=== PATIENT | male | born 1975 | race Caucasian/White ===

== ENCOUNTER 2022-02-02 07:56 | Inpatient (IN) ==
[2022-02-02] MEDS ORDERED: methylPREDNISolone SOD SUCC 125 MG/2 ML VIAL IV ONE (08:02)
[2022-02-02] MEDS ORDERED: LORazepam 2 MG/ML VIAL IV ONE (08:09)
[2022-02-02] MEDS ORDERED: IPRATROPIUM/ALBUTEROL 3 ML AMPUL.NEB NEB ONE ×3 (08:09→08:34)
[2022-02-02] MEDS ORDERED: LORazepam 2 MG/ML VIAL ONE (08:17)
[2022-02-02] MEDS ORDERED: LEVOFLOXACIN 750 MG/150 ML BAG IV ONE (08:32)
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
[2022-02-02 08:45] LABS: Basophils % (Auto) 0.8 % (0.0-2.0); Eosinophils # (Auto) 0.93 K/mcL (0.00-0.70); Eosinophils % (Auto) 7.1 % (0.0-7.0); Hematocrit 48.7 % (40.1-51.0); Hemoglobin 16.9 g/dL (13.7-17.5); Lymphocytes # (Auto) 3.43 K/mcL (1.50-4.80); Lymphocytes % (Auto) 26.2 % (15.5-49.0); Mean Cell Volume 95.1 fL (80.0-100.0); Mean Corpuscular HGB Conc 34.7 g/dL (31.0-36.0); Mean Platelet Volume 8.7 fL (7.4-10.4); Monocytes # (Auto) 1.01 K/mcL (0.10-0.90); Monocytes % (Auto) 7.7 % (1.0-12.0); Neutrophils % (Auto) 57.7 % (38.0-78.0); Platelet Count 350 K/mcL (140-440); RBC 5.12 M/mcL (4.63-6.08); Red Cell Distribution Width 11.1 % (11.5-14.5); WBC 13.1 K/mcL (4.5-11.0)
--- NOTE | 2022-02-02 08:59 | XRay Report ---
INDICATION: shortness of breath TECHNIQUE: AP portable chest x-ray COMPARISON: Previous examinations dated 10/07/2021, 09/15/2013 FINDINGS: Lungs:Lungs are negative. No focal pulmonary parenchymal infiltrate or mass Heart, vascular:No significant cardiomegaly. Pulmonary vascularity is normal. No pulmonary edema or pulmonary congestion Mediastinum, susana:No mediastinal widening. No hilar mass Pleura:No pleural fluid. No pleural-based mass or calcification Skeletal:Negative. IMPRESSION: Negative AP chest x-ray Interpreted and Authenticated by: Ilir Foss 02/02/22
[2022-02-02 09:07] LABS: ALT/SGPT 19 U/L (<40); AST/SGOT 24 U/L (<40); Albumin 4.4 gm/dL (3.2-5.2); Albumin/Globulin Ratio 1.3 (1.0-2.3); Alkaline Phosphatase 97 U/L (39-117); Bilirubin,Total 0.3 mg/dL (0.1-1.0); Blood Urea Nitrogen 10 mg/dL (6-20); Calcium 9.1 mg/dL (8.6-10.4); Carbon Dioxide 23 mmol/L (22-30); Chloride 100 mmol/L (96-108); Globulin 3.3 gm/dL (2.2-3.7); Glomerular Filtration Rate 89; Glucose 166 mg/dL (70-105)
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
[2022-02-02] MEDS ORDERED: ACETAMINOPHEN 325 MG TABLET PO PRN (10:49)
[2022-02-02] MEDS ORDERED: predniSONE 20 MG TABLET PO SCH (10:49)
[2022-02-02] MEDS ORDERED: SENNOSIDES 1 TABLET PO PRN (10:49)
[2022-02-02] MEDS ORDERED: LORazepam 0.5 MG TABLET PO PRN (10:49)
[2022-02-02] MEDS ORDERED: LACTULOSE 20 GM/30 ML ORAL.SOL PO PRN (10:49)
[2022-02-02] MEDS ORDERED: ONDANSETRON 4 MG/2 ML VIAL IV PRN (10:49)
[2022-02-02] MEDS ORDERED: MAGNESIUM SULFATE 8.12 MEQ/2 ML VIAL IV ONE (10:49)
[2022-02-02] MEDS ORDERED: MAGNESIUM SULFATE 8.12 MEQ in DEXTROSE 5% IN WATER 50 ML IV ONE (11:00)
[2022-02-02] MEDS ORDERED: IPRATROPIUM/ALBUTEROL 3 ML AMPUL.NEB NEB SCH (11:00)
[2022-02-02] MEDS ORDERED: AZITHROMYCIN 250 MG TABLET PO SCH (11:00)
--- NOTE | 2022-02-02 12:59 | Discharge Summary ---
Discharge Provider Provider IMPORTANT FOLLOW-UP INFORMATION FOR PCP: Patient information: Note initiated : 02/02/22 at 12:57 pm Service Date, if different from initiated Date: [] Patient: Shaun Watts 46 y/o M admitted on 02/02/22 for Cant Breath. Chief Complaint: [] Date of admission: 02/02/22 10:46 Discharge date: 02/02/22 Primary care physician: FREDDIE Miller Consults: 02/02/22 08:45 Consult to Physician [CONS] Stat Comment: Consulting Provider: Juan Ayala Reason For Exam: Physician to Consult COURSE Hospital Course Hospital course: History of present illness: Mr. Watts is a 46 year old M history of asthma COPD, presenting with 1 day history of acute onset shortness of breath. Patient has been running out of her asthma COPD medications due to insurance issues. Yesterday he started to experience runny nose and nasal congestions. This morning he woke up with acute onset shortness of breath with chest tightness. He is also committing of nonp roductive cough as well as respiratory wheezings. He is also commenting on anxiety. He denies any fever chills or diaphoresis. He denies any general body weakness. He denies any cigarette smoking nor secondhand cigarette exposure. He also denies pet exposure or any other environmental triggers. He presented to our ER for further evaluations. Vital signs at ED presentation significant for tachycardia and tachypnea with heart rate and rate of breathing up to 140s and 40s, respectively. Oxygen saturations down to the 50s so he was placed on BiPAP. Labs significant for leukocytosis with WBC 13.1. COVID-negative. Lactic acid 2.4. Chest x-ray unremarkable. Admission request was called for asthma COPD exacerbations. Patient left AMA shortly after arrival to the floor Discharge diagnosis: Acute COPD exacerbation Time Spent with Patient Time attestation: Total time spent providing and/or coordinating discharge services: Time spent: Less than 30 minutes EXAM Constitutional Vitals: Temp Pulse Resp BP Pulse Ox 96.8 F L 113 H 21 117/80 90 02/02/22 10:55 02/02/22 12:02 02/02/22 12:02 02/02/22 12:02 02/02/22 12:02 Discharge Data Data Completed and Pending Labs on day of discharge: Labs from last 24 hours 02/02/22 02/02/22 02/02/22 11:05 08:19 08:19 WBC 13.1 H RBC 5.12 Hgb 16.9 Hct 48.7 MCV 95.1 MCH 33.0 MCHC 34.7 RDW 11.1 L Plt Count 350 MPV 8.7 Immature Gran % (Auto) 0.5 Neut % (Auto) 57.7 Lymph % (Auto) 26.2 [place] % (Auto) 7.7 Eos % (Auto) 7.1 H Baso % (Auto) 0.8 Lymph # (Auto) 3.43 [place] # (Auto) 1.01 H Eos # (Auto) 0.93 H Baso # (Auto) 0.10 Immature Gran # 0.06 H Absolute Neutrophils 7.62 POC VBG pH POC VBG pCO2 at Temp POC VBG pO2 POC VBG HCO3 POC VBG Total CO2 POC Venous O2 Sat POC VBG Base Excess VBG Lactic Acid 1.2 Sodium Pending 136 Potassium Pending 3.9 Chloride Pending 100 Carbon Dioxide Pending 23 Anion Gap Pending 13.0 BUN Pending 10 Creatinine Pending 1.0 GFR Calculation Pending 89 Glucose Pending 166 H POC Venous Lactate Calcium Pending 9.1 Total Bilirubin Pending 0.3 AST Pending 24 ALT Pending 19 Alkaline Phosphatase Pending 97 Total Protein Pending 7.7 Albumin Pending 4.4 Globulin Pending 3.3 Albumin/Globulin Ratio Pending 1.3 02/02/22 08:12 WBC RBC Hgb Hct MCV MCH MCHC RDW Plt Count MPV Immature Gran % (Auto) Neut % (Auto) Lymph % (Auto) [place] % (Auto) Eos % (Auto) Baso % (Auto) Lymph # (Auto) [place] # (Auto) Eos # (Auto) Baso # (Auto) Immature Gran # Absolute Neutrophils POC VBG pH 7.29 L POC VBG pCO2 at Temp 53.9 H POC VBG pO2 34 POC VBG HCO3 25.8 POC VBG Total CO2 27.0 POC Venous O2 Sat 57.0 POC VBG Base Excess -1.0 VBG Lactic Acid Sodium Potassium Chloride Carbon Dioxide Anion Gap BUN Creatinine GFR Calculation Glucose POC Venous Lactate 2.4 H Calcium Total Bilirubin AST ALT Alkaline Phosphatase Total Protein Albumin Globulin Albumin/Globulin Ratio Discharge Plan Patient/Caregiver Discharge Instructions Prescriptions: No Action Flovent HFA 220 mcg/actuation HFA aerosol inhaler 2 inh inhalation DAILY Qty: 12 6RF (DME) nebulizer and compressor Device See Rx Instructions .Route Qty: 1 0RF Rx Instructions: As directed albuterol sulfate 1.25 mg/3 mL solution for nebulization 1.25 mg inhalation Q4-6H PRN (Reason: shortness of breath or wheezing) Qty: 90 2RF albuterol sulfate [Ventolin HFA] 90 mcg/actuation HFA aerosol inhaler 2 puff INHALATION Q4-6H PRN (Reason: shortness of breath or wheezing) Qty: 18 2RF montelukast [Singulair] 10 mg tablet 10 mg PO QDAY Qty: 90 1RF phentermine 37.5 mg tablet 18.75 mg PO BID Qty: 30 0RF Rx Instructions: take in the morning before breakfast and then at lunch time when you get hungry Follow Up Plan Follow up with: Ambrocio Hawkins ARNP [Primary Care Provider] - Patient Disposition: Left Against Medical Advice Prognosis: Fair
[2022-02-02] MEDS ORDERED: 0.9 % SODIUM CHLORIDE 10 ML SYRINGE IV SCH (14:00)
[2022-02-02 14:36] LABS: ALT/SGPT 17 U/L (<40); AST/SGOT 21 U/L (<40); Albumin 4.2 gm/dL (3.2-5.2); Albumin/Globulin Ratio 1.3 (1.0-2.3); Alkaline Phosphatase 90 U/L (39-117); Bilirubin,Total 0.4 mg/dL (0.1-1.0); Blood Urea Nitrogen 13 mg/dL (6-20); Calcium 9.2 mg/dL (8.6-10.4); Carbon Dioxide 27 mmol/L (22-30); Chloride 100 mmol/L (96-108); Globulin 3.2 gm/dL (2.2-3.7); Glomerular Filtration Rate 101; Glucose 130 mg/dL (70-105)
[2022-02-02] MEDS ORDERED: DOCUSATE SODIUM 100 MG CAPSULE PO SCH (21:00)
[2022-02-03] MEDS ORDERED: PHENTERMINE 37.5 MG PO SCH (08:00)
[2022-02-03] MEDS ORDERED: ENOXAPARIN 40 MG/0.4 ML SYRINGE SQ SCH (09:00)
[2022-02-03] MEDS ORDERED: MONTELUKAST 10 MG TABLET PO SCH (09:00)
--- NOTE | 2022-02-09 10:41 | EKG ---
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 Measurements Intervals [place] Rate: 129 P: 67 [place]: 132 QRS: 89 QRSD: 95 T: 22 QT: 291 QTc: 427 Interpretive Statements Sinus tachycardia Electronically Signed On 02-09-2022 10:41:28 PDT by Ilir Hughes M.D. /[id number]/[id number]
== END 2022-02-02 12:53 | disposition left against medical advice (07) | DRG 192 ==
LOC: ED 07:56 → SUATTDRO 10:46 → ICU 10:46
PROVIDERS: ADMIT Internal Medicine; ATTEND Internal Medicine

== ENCOUNTER 2025-04-15 11:23 | Inpatient (IN) ==
[2025-04-15] MEDS ORDERED: IOPAMIDOL 100 ML BOTTLE IV ONE (11:24)
[2025-04-15] MEDS: IPRATROPIUM/ALBUTEROL 3 ML AMPUL.NEB NEB ONE (11:35)
[2025-04-15] MEDS: LORazepam 2 MG/ML VIAL IV ONE (11:43)
[2025-04-15 11:58] LABS: Basophils # (Auto) 0.07 K/mcL (0.00-0.30); Basophils % (Auto) 0.7 % (0.0-2.0); Eosinophils # (Auto) 0.76 K/mcL (0.00-0.70); Eosinophils % (Auto) 8.0 % (0.0-7.0); Hematocrit 48.1 % (40.1-51.0); Hemoglobin 15.8 g/dL (13.7-17.5); Lymphocytes # (Auto) 6.42 K/mcL (1.50-4.80); Lymphocytes % (Auto) 67.3 % (15.5-49.0); Mean Corpuscular HGB Conc 32.8 g/dL (31.0-36.0); Monocytes # (Auto) 0.53 K/mcL (0.10-0.90); Monocytes % (Auto) 5.6 % (1.0-12.0); Neutrophils % (Auto) 18.1 % (38.0-78.0); Platelet Count 354 K/mcL (140-440); RBC 4.71 M/mcL (4.63-6.08); WBC 9.5 K/mcL (4.5-11.0)
[2025-04-15] MEDS: ALBUTEROL SULFATE 2.5 MG/3 ML NEBULIZER NEB ONE (12:13)
[2025-04-15] MEDS: MAGNESIUM SULFATE 2 GM/50 ML BAG IV ONE (12:17)
[2025-04-15 12:21] LABS: Anion Gap 16.0 (8.0-16.0); Blood Urea Nitrogen 10 mg/dL (6-20); Calcium 8.6 mg/dL (8.6-10.4); Carbon Dioxide 22 mmol/L (22-30); Chloride 104 mmol/L (96-108); Glucose 148 mg/dL (70-105); Potassium 3.8 mmol/L (3.3-5.1); Sodium 142 mmol/L (133-145)
[2025-04-15] MEDS: 0.9 % SODIUM CHLORIDE 1,000 ML IV ONE (13:17)
[2025-04-15 14:16] LABS: C-Reactive Protein 0.18 mg/dL (0.03-0.80)
[2025-04-15] MEDS ORDERED: POTASSIUM CHLORIDE 40 MEQ in DEXTROSE 5% IN WATER 500 ML IV PRN (15:12)
[2025-04-15] MEDS ORDERED: ONDANSETRON 4 MG/2 ML VIAL IV PRN (15:12)
[2025-04-15] MEDS ORDERED: ACETAMINOPHEN 325 MG TABLET PO PRN (15:12)
[2025-04-15] MEDS ORDERED: POTASSIUM CHLORIDE 20 MEQ TABLET PO PRN ×2 (15:12)
[2025-04-15] MEDS ORDERED: DEXTROSE 31 GM ORAL.SUSP PO PRN (15:12)
[2025-04-15] MEDS ORDERED: SENNOSIDES 1 TABLET PO PRN (15:12)
[2025-04-15] MEDS ORDERED: DEXTROSE 50% 50 ML VIAL IV PRN (15:12)
[2025-04-15] MEDS ORDERED: METOCLOPRAMIDE 10 MG/2 ML VIAL IV PRN (15:12)
[2025-04-15] MEDS ORDERED: POLYETHYLENE GLYCOL 3350 17 GM PACKET PO PRN (15:12)
[2025-04-15] MEDS ORDERED: MAGNESIUM SULFATE 2 GM/50 ML BAG IV PRN (15:12)
[2025-04-15] MEDS: IPRATROPIUM/ALBUTEROL 3 ML AMPUL.NEB NEB SCH (15:31)
[2025-04-15] MEDS: PANTOPRAZOLE 40 MG TABLET PO SCH (15:33)
[2025-04-15] MEDS: AZITHROMYCIN 500 MG in DEXTROSE 5% IN WATER 250 ML IV SCH (15:50)
[2025-04-15] MEDS: INSULIN LISPRO 1 UNIT/0.01 ML UNIT SQ SCH (16:40)
[2025-04-15] MEDS: BUDESONIDE 0.5 MG/2 ML AMPUL.NEB NEB SCH (19:13)
[2025-04-15] MEDS: MELATONIN 3 MG TABLET PO SCH (19:31)
[2025-04-15] MEDS: DOCUSATE SODIUM 100 MG CAPSULE PO SCH (20:24)
[2025-04-16 06:26] LABS: Basophils # (Auto) 0.01 K/mcL (0.00-0.30); Basophils % (Auto) 0.1 % (0.0-2.0); Eosinophils # (Auto) 0 K/mcL (0.00-0.70); Eosinophils % (Auto) 0 % (0.0-7.0); Hematocrit 43.3 % (40.1-51.0); Hemoglobin 14.5 g/dL (13.7-17.5); Lymphocytes # (Auto) 0.81 K/mcL (1.50-4.80); Lymphocytes % (Auto) 10.3 % (15.5-49.0); Mean Corpuscular HGB Conc 33.5 g/dL (31.0-36.0); Monocytes # (Auto) 0.16 K/mcL (0.10-0.90); Monocytes % (Auto) 2.0 % (1.0-12.0); Neutrophils % (Auto) 87.3 % (38.0-78.0); Platelet Count 292 K/mcL (140-440); RBC 4.33 M/mcL (4.63-6.08); WBC 7.9 K/mcL (4.5-11.0)
[2025-04-16 06:53] LABS: ALT/SGPT 22 U/L (<40); AST/SGOT 21 U/L (<40); Albumin 3.8 gm/dL (3.2-5.2); Albumin/Globulin Ratio 1.4 (1.0-2.3); Alkaline Phosphatase 72 U/L (39-117); Anion Gap 13.0 (8.0-16.0); Bilirubin,Direct < 0.2 mg/dL (0-0.3); Bilirubin,Total 0.4 mg/dL (0.1-1.0); Blood Urea Nitrogen 9 mg/dL (6-20); Calcium 8.6 mg/dL (8.6-10.4); Carbon Dioxide 21 mmol/L (22-30); Chloride 103 mmol/L (96-108); Globulin 2.7 gm/dL (2.2-3.7); Glucose 156 mg/dL (70-105); Phosphorous 2.4 mg/dL (2.5-4.5); Potassium 4.4 mmol/L (3.3-5.1); Sodium 137 mmol/L (133-145); Triglycerides 71 mg/dL (<150); Uric Acid 6.4 mg/dL (2.5-8.0)
[2025-04-16] MEDS: ATORVASTATIN 20 MG TABLET PO SCH (08:26)
[2025-04-16] MEDS: ENOXAPARIN 40 MG/0.4 ML SYRINGE SQ SCH (08:26)
[2025-04-16] MEDS: AZITHROMYCIN 250 MG TABLET PO SCH (08:26)
[2025-04-16] MEDS: LACTATED RINGERS 1,000 ML IV ONE (11:45)
[2025-04-16] MEDS: SODIUM BICARBONATE 650 MG TABLET PO SCH (11:52)
[2025-04-16] MEDS: IPRATROPIUM/ALBUTEROL 3 ML AMPUL.NEB NEB PRN (12:13)
[2025-04-16 13:32] LABS: RBC Morphology NORMAL (Normal)
[2025-04-16] MEDS: NICOTINE 21 MG PATCH TOPICAL SCH (16:26)
[2025-04-16] MEDS: ETHYL ALCOHOL 30 ML ORAL.SOL PO SCH (16:26)
[2025-04-16] MEDS: LACTATED RINGERS 1,000 ML IV SCH (16:27)
[2025-04-17 06:02] VITALS: O2SAT 95
[2025-04-17 08:01] VITALS: TEMP 98.2
== END 2025-04-17 09:35 | disposition home or self-care (01) | DRG 189 ==
LOC: ED 11:23 → ICU 14:50
PROVIDERS: ADMIT Internal Medicine; ATTEND Internal Medicine